=== PATIENT | female | born 1995 | race Caucasian/White ===

== ENCOUNTER 2018-04-10 12:01 | Emergency (ER) | payer MEDICAID ==
[~2018-04-10] VITALS: Ht 160 cm; Wt 68.0 kg
[2018-04-10 12:07] VITALS: BP_SYST 117
--- NOTE | 2018-04-10 12:16 | NUR ---
Pt c/o abcess to sacrum, started off as a small bump 1 week ago. Rx antibiotics per PMD, no relief. States abcess is bigger and more painful. Area appears red and swollen, no drainage noted.
--- NOTE | 2018-04-10 12:16 | NUR ---
Patient to ER bed 4 to gown for evaluation. Side rails up. Report given to Rory PÉREZ.
--- NOTE | 2018-04-10 12:30 | NUR ---
Dr. Cole at bedside.
[2018-04-10] MEDS ORDERED: LIDOCAINE/PRILOCAINE 5 GM CREAM (EMLA) TP ONE (12:45)
[2018-04-10] MEDS ORDERED: ONDANSETRON HCL 4 MG/2 ML VIAL IVP ONE (13:00)
[2018-04-10] MEDS ORDERED: ceFAZolin SODIUM 1 GM in D5W 50 ML IV ONE (13:00)
[2018-04-10] MEDS ORDERED: fentaNYL CITRATE/PF 100 MCG/2 ML AMP IVP ONE ×2 (13:15→14:45)
[2018-04-10] MEDS ORDERED: LIDOCAINE/EPI 2% 1:100000 20 ML VIAL INJ ONE (13:15)
[2018-04-10] MEDS ORDERED: SODIUM BICARBONATE 8.4% VIAL 50 MEQ/50 ML VIAL INJ ONE (13:15)
[2018-04-10] MEDS ORDERED: ceFAZolin SODIUM 1 GM VIAL ONE (13:28)
--- NOTE | 2018-04-10 13:37 | NUR ---
Dr. Cole at bed to perform Incision and drainage.
--- NOTE | 2018-04-10 13:40 | NUR ---
Fentanyl 12.5 mcg IVP given to RAC prior to procedure.
--- NOTE | 2018-04-10 13:45 | NUR ---
Pt continues to experience burning during initiation of incision and drainage. Fentanyl 25 mcg given IVP to RAC, per verbal orders of Dr. Cole while he is at bedside. Pt on classroom monitor.
--- NOTE | 2018-04-10 13:55 | NUR ---
Procedure complete. Pt tolerated well post second dose of fentanyl. Serosanguinous fluid drained from abcess, iodoform packing placed per Dr. Cole. Area cleaned and covered with tegaderm as instructed by Dr. Cole.
--- NOTE | 2018-04-10 14:20 | NUR ---
Patient given written and verbal discharge instructions and verbalizes understanding. ER MD discussed with patient the results and treatment provided. Patient in stable condition. ID arm band removed. IV catheter removed intact and dressing applied, no active bleeding. Rx of Motrin, [place], and Augmentin given. Patient educated on pain management and to follow up with PMD. Pain Scale 1/10. Opportunity for questions provided and answered. Medication side effect fact sheet provided. Pt instructed to not drive or drink alcohol while taking norco.
[2018-04-10 17:51] VITALS: BP_SYST 122
== END 2018-04-10 14:20 | disposition home or self-care (01) ==
LOC: SED 12:01
DX: L02.212 Cutaneous abscess of back [any part, except buttock and flank] (principal)
CPT/HCPCS: 10060; 96365; 96372; 96375; 99284; J0690; J2405; J3010

== ENCOUNTER 2018-04-16 13:42 | Emergency (ER) | payer MEDICAID ==
[~2018-04-16] VITALS: Ht 160 cm; Wt 68.0 kg
[2018-04-16 13:50] VITALS: BP_SYST 117
[2018-04-16 17:35] VITALS: BP_SYST 115
== END 2018-04-16 17:35 | disposition home or self-care (01) ==
LOC: SED 13:42
DX: Z48.01 Encounter for change or removal of surgical wound dressing (principal)
CPT/HCPCS: 99282

== ENCOUNTER 2018-10-31 17:57 | Emergency (ER) | payer MEDICAID ==
[~2018-10-31] VITALS: Ht 160 cm; Wt 65.8 kg
[2018-10-31 18:00] VITALS: BP_SYST 121
[2018-10-31] MEDS ORDERED: CEFAZOLIN SODIUM 500 MG in D5W 50 ML IV ONE (18:15)
[2018-10-31] MEDS ORDERED: LIDOCAINE/EPI 2% 1:100000 20 ML VIAL INJ ONE (18:15)
[2018-10-31] MEDS ORDERED: NACL 0.9% 1,000 ML IV ONE (18:15)
[2018-10-31] MEDS ORDERED: fentaNYL CITRATE/PF 100 MCG/2 ML AMP IVP ONE ×2 (18:15→19:00)
[2018-10-31] MEDS ORDERED: LIDOCAINE/PRILOCAINE 5 GM CREAM (EMLA) TP ONE (18:15)
[2018-10-31] MEDS ORDERED: CEFAZOLIN SODIUM 500 MG VIAL ONE (18:33)
[2018-10-31] MEDS ORDERED: SODIUM BICARBONATE 8.4% VIAL 50 MEQ/50 ML VIAL INJ ONE (19:00)
[2018-10-31 19:30] VITALS: BP_SYST 110
== END 2018-10-31 19:30 | disposition home or self-care (01) ==
LOC: SED 17:57
DX: L05.01 Pilonidal cyst with abscess (principal); R03.0 Elevated blood-pressure reading, without diagnosis of hypertension
CPT/HCPCS: 10080; 36415; 87040; 96365; 96375; 99284; J0690; J3010; J7030; 99283; J7060

== ENCOUNTER 2018-11-03 17:24 | Emergency (ER) | payer MEDICAID ==
[~2018-11-03] VITALS: Ht 160 cm; Wt 65.8 kg
[2018-11-03 18:00] VITALS: BP_SYST 116
[2018-11-03] MEDS ORDERED: HYDROcodone/ACETAMIN 5-325 MG TAB (NORCO/ VICODIN) PO ONE (20:45)
[2018-11-03 21:36] VITALS: BP_SYST 116
== END 2018-11-03 21:36 | disposition home or self-care (01) ==
LOC: SED 17:24
DX: L05.01 Pilonidal cyst with abscess (principal)
CPT/HCPCS: 99282

== ENCOUNTER 2021-09-07 01:26 | Emergency (ER) | payer MEDICAID ==
[~2021-09-07] VITALS: Ht 160 cm; Wt 68.0 kg
--- NOTE | 2021-09-07 01:26 | NUR ---
ER at bedside examining patient.
[2021-09-07 02:10] VITALS: BP_SYST 114
--- NOTE | 2021-09-07 02:14 | NUR ---
Patient ambulatory to bed 8 for evaluation and treatment
[2021-09-07] MEDS ORDERED: KETOROLAC TROMETHAMINE 60 MG/2 ML VIAL IM ONE (02:15)
[2021-09-07] MEDS ORDERED: NAPR-690 PO (03:39)
[2021-09-07 03:48] VITALS: BP_SYST 114
--- NOTE | 2021-09-07 03:48 | NUR ---
Patient given written and verbal discharge instructions by Dr Mann and verbalizes understanding. ER MD discussed with patient the results and treatment provided. Patient in stable condition. ID arm band removed. Rx of Naproxen sent to pharmacy of choice by ER MD. Patient educated on pain management and to follow up with PMD. Pain Scale 1/10. Opportunity for questions provided and answered by Dr Mann.
== END 2021-09-07 03:48 | disposition home or self-care (01) ==
LOC: SED 01:26
DX: S70.02XA Contusion of left hip, initial encounter (principal); Z79.899 Other long term (current) drug therapy; W18.39XA Other fall on same level, initial encounter; Y93.89 Activity, other specified; Y92.89 Other specified places as the place of occurrence of the external cause; Y99.8 Other external cause status
CPT/HCPCS: 72100; 81025; 96372; 99283; J1885